=== PATIENT | male | born 2000 | race Caucasian/White ===

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

== ENCOUNTER 2022-01-05 00:51 | Emergency (ER) | payer OTHER ==
[2022-01-05 00:56] VITALS: PULSE 103; RESP 20; TEMP 99.3
--- NOTE | 2022-01-05 01:42 | US ---
EXAMINATION TYPE: US scrotum with doppler. Grayscale and color Doppler Duplex imaging performed of don fritz scrotum. DATE OF EXAM: 01/05/2022 COMPARISON: NONE CLINICAL HISTORY: Testicular pain. Patient has redness, pain and swelling lateral left testicle, casandra ent states he shaves scrotum every 2 days EXAM MEASUREMENTS: TESTICLES: Right Testicle: 4.5 x 3.5 x 2.5 cm Left Testicle: 4.7 x 3.2 x 2.9 cm EPIDIDYMIS HEAD: Right Epididymis: 1.1 cm Left Epididymis: 1.0 cm Doppler performed to assess for testicular vascularity; good bilateral color flow and waveforms are s een. There is no evidence of testicular torsion. Presence of hydroceles: mild lateral right Presence of varicoceles: no tissue lateral to left testicle appears inflamed, scrotal skin around left testicle is thicker then the right, possible infection from recent shaving IMPRESSION: No testicular torsion or mass. There is some minimal right-sided hydrocele. Skin thickening seen on the left side consistent with some cellulitis.
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
[2022-01-05 02:07] LABS: Basophils % (A) 0 %; Eosinophils # (A) 0.1 k/uL (0-0.7); Eosinophils % (A) 1 %; HCT 49.6 % (39.0-53.0); HGB 16.9 gm/dL (13.0-17.5); Lymphocytes # (A) 1.4 k/uL (1.0-4.8); Lymphocytes % (A) 10 %; MCH 30.3 pg (25.0-35.0); MCHC 34.1 g/dL (31.0-37.0); MCV 88.8 fL (80.0-100.0); Mean Platelet Volume 9.7; Monocytes # (A) 0.6 k/uL (0-1.0); Monocytes % (A) 4 %; Neutrophils # (A) 11.1 k/uL (1.3-7.7); Neutrophils % (A) 82 %; Platelet Count 129 k/uL (150-450); RBC 5.59 m/uL (4.30-5.90); RDW 13.9 % (11.5-15.5); WBC 13.5 k/uL (3.8-10.6)
[2022-01-05] MEDS ORDERED: PIPERACILLIN-TAZOBACTAM 3.375 GM in SODIUM CHLORIDE 0.9% 100 ML IVPB STA (02:18)
[2022-01-05 02:36] LABS: ALT 93 U/L (4-49); AST 49 U/L (17-59); African American GFR (CKD) >90 (>60 ml/min/1.73 sqM); Albumin 4.9 g/dL (3.5-5.0); Alkaline Phosphatase 126 U/L (38-126); Anion Gap 10 mmol/L; Blood Urea Nitrogen 8 mg/dL (9-20); Calcium 9.3 mg/dL (8.4-10.2); Carbon Dioxide 25 mmol/L (22-30); Chloride 101 mmol/L (98-107); Glucose 104 mg/dL (74-99); Non-African American GFR(CKD) >90 (>60 ml/min/1.73 sqM); Potassium 4.1 mmol/L (3.5-5.1); Sodium 136 mmol/L (137-145); Total Bilirubin 0.7 mg/dL (0.2-1.3); Total Protein 7.9 g/dL (6.3-8.2)
== END 2022-01-05 03:54 | disposition home or self-care (01) ==
LOC: EC 00:51 → EEVIPCON 00:51 → EC 03:54
DX: N49.2 Inflammatory disorders of scrotum (principal); F17.200 Nicotine dependence, unspecified, uncomplicated; Z91.011 Allergy to milk products; Z88.8 Allergy status to other drugs, medicaments and biological substances
CPT/HCPCS: 36415; 80053; 85025; 87491; 87591; 93975; 76870; 99284; 96365; J2543